=== PATIENT | male | born 1960 | race Caucasian/White ===

== ENCOUNTER → 2024-06-21 08:33 | Outpatient (REF) | payer OTHER, SELFPAY | LOC: RAD 08:33 | PROVIDERS: ATTENDING PHYSICIAN Family Medicine | DX: I83.90 Asymptomatic varicose veins of unspecified lower extremity (principal) | CPT/HCPCS: 93970 ==

== ENCOUNTER → 2024-09-28 13:47 | Outpatient (REF) | payer OTHER, SELFPAY | LOC: HWRAD 13:47 | PROVIDERS: ATTENDING PHYSICIAN Family Medicine | DX: I82.512 Chronic embolism and thrombosis of left femoral vein (principal) | CPT/HCPCS: 93971 ==

== ENCOUNTER → 2025-01-07 10:01 | Outpatient (REF) | payer OTHER, SELFPAY | LOC: PAVMRI 10:01 | PROVIDERS: ATTENDING PHYSICIAN Orthopaedic Surgery; FAMILY PHYSICIAN Family Medicine | DX: M25.512 Pain in left shoulder (principal) | CPT/HCPCS: 73221 ==

== ENCOUNTER → 2025-01-22 09:00 | Outpatient (REF) | payer OTHER, SELFPAY ==
[2025-01-22 14:15] VITALS: BMI 25.0
== END ==
LOC: SDSPAT 09:00
PROVIDERS: ATTENDING PHYSICIAN Orthopaedic Surgery; FAMILY PHYSICIAN Family Medicine
DX: M75.122 Complete rotator cuff tear or rupture of left shoulder, not specified as traumatic (principal)
CPT/HCPCS: 36415; 93005